=== PATIENT | female | born 1975 | race Caucasian/White ===

== ENCOUNTER 2019-07-01 12:47 | Emergency (ER) | payer OTHER ==
[2019-07-01] MEDS ORDERED: METHYLPREDNISOLONE PF 125MG/VIAL IVP ONE (12:55)
[2019-07-01] MEDS ORDERED: IPRATROPIUM/ALBUTEROL (0.5MG/3MG) NEB INH ONE ×2 (12:55→14:04)
[2019-07-01] MEDS ORDERED: ALBUTEROL (0.5% CONCENTRATED) 2.5 MG/0.5 ML VIAL.NEB INH ONE (12:56)
--- NOTE | 2019-07-01 12:56 | Emergency Department Record ---
History of Present Illness - General Stated Complaint: GALE/ASTHMA RELATED Time Seen by Provider: 07/01/19 12:51 Source: Patient Mode of Arrival: Ambulatory Limitations: No limitations - History of Present Illness Initial Comments: 43 yo female presents with shortness of breath. She has a life long history of asthma. On Wednesday she developed cough, clear runny nose and wheezing. No fevers or sputum. No chest pain. She used her inhaler twice today without relief. No history or ICU or intubation. No nausea, vomiting, diarrhea, swelling, rash or other current symptoms. She is a non smoker. She has had pneumonia in the past. Dr Jones is her PCP. MD Complaint: "Asthma attack", Shortness of breath -: Days(s) Asthma History: Childhood onset Severity: Moderate, Similar to prior Context: Recent URI Associated Symptoms: Dry cough Treatments Prior to Arrival: Inhaled bronchodilator - Related Data Current Asthma Therapy: Inhaled bronchodilator Home Medications Medication Instructions Recorded Confirmed Last Taken Albuterol Sulfate [Albuterol 1 puff IH ASDIR 07/01/19 07/01/19 Unknown Sulfate Hfa] Fluticasone Propion/Salmeterol 1 puff IH DAILY 07/01/19 07/01/19 Unknown [Advair Hfa 45-21 Mcg Inhaler] Omeprazole [Prilosec] 20 mg PO DAILY 07/01/19 07/01/19 Unknown Sertraline HCl [Zoloft] 100 mg PO DAILY 07/01/19 07/01/19 Unknown Previous Rx's Medication Instructions Recorded Albuterol Sulfate [Proventil Hfa] 1 - 2 puff INH .EVERY 4-6 HOURS 07/01/19 PRN #1 inhaler Azithromycin [Zithromax] 250 mg PO DAILY #4 tab 07/01/19 Prednisone [Prednisone 20Mg] 20 mg PO DAILY #10 tab 07/01/19 Allergies Allergy/AdvReac Type Severity Reaction Status Date / Time codeine Allergy BEHAVIORAL Verified 07/01/19 13:12 CHANGES Review of Systems Constitutional: Denies: Chills, Fever, Malaise, Weakness Eyes: Denies: Eye discharge, Eye pain, Photophobia, Vision change ENT: Reports: Congestion. Denies: Ear pain, Epistaxis, Throat pain Respiratory: Reports: Cough, Dyspnea, Wheezes. Denies: Hemoptysis, Stridor Cardiovascular: Reports: Dyspnea on exertion. Denies: Chest pain, Edema, Palpitations, Syncope Endocrine: Denies: Fatigue, Polydipsia, Polyuria Gastrointestinal: Denies: Abdominal pain, Diarrhea, Nausea, Vomiting Genitourinary: Denies: Dysuria, Urgency Musculoskeletal: Denies: Arthralgia, Back pain, Myalgia Skin: Denies: Bruising, Change in color, Rash Neurological: Denies: Headache Psychiatric: Denies: Anxiety Hematological/Lymphatic: Denies: Easy bleeding, Easy bruising Physical Exam - General General Appearance: Alert, Oriented x3, Cooperative, No acute distress Limitations: No limitations - Head Head exam: Atraumatic - Eye Eye exam: Normal appearance, PERRL Pupils: Normal accommodation - ENT ENT exam: Normal exam, Mucous membranes moist Ear exam: Normal external inspection Nasal Exam: Normal inspection Mouth exam: Normal external inspection Teeth exam: Normal inspection Throat exam: Normal inspection. negative: Tonsillar erythema, Tonsillomegaly, Tonsillar exudate, R peritonsillar mass, L peritonsillar mass - Neck Neck exam: Normal inspection, Full ROM. negative: Lymphadenopathy, Meningismus, Tenderness, Thyromegaly - Respiratory Respiratory exam: Accessory muscle use, Decreased breath sounds, Prolonged exp iratory, Wheezes, Other (Mild conversational dyspnea). negative: Normal lung sounds bilaterally, Chest wall tenderness, Rales, Respiratory distress, Rhonchi, Stridor - Cardiovascular Cardiovascular Exam: Regular rate, Normal rhythm, Normal heart sounds Peripheral Pulses: 2+: Radial (R), Radial (L) - GI/Abdominal GI/Abdominal exam: Soft. negative: Tenderness - Rectal Rectal exam: Deferred - exam: Deferred - Extremities Extremities exam: Normal inspection, Full ROM. negative: Pedal edema, Tenderness - Back Back exam: Denies: CVA tenderness (R), CVA tenderness (L) - Neurological Neurological exam: Alert, Oriented X3 - Psychiatric Psychiatric exam: Normal affect, Normal mood - Skin Skin exam: Dry, Intact, Normal color, Warm Course - Reevaluation(s) Reevaluation #1: 07/01/19 13:21 Recheck after the initial treatments The patient subjectively still feels tight but her lungs sounds are significantly improved with good inspiratory air movement and no wheeze. She is relaxed now without any conversational dypnea 07/01/19 14:04 The patient feels better but states she still has a little tightness. Repeat Duonenb ordered and will monitor. 07/01/19 14:59 The labs were reviewed. No changes on the CBC The BMP demonstrated a K of 3.1. Oral replacement ordered. 07/01/19 15:10 The XR was read as small right lower lung infiltrate at the base. She will be given a dose of antibiotics in the ED 07/01/19 15:30 The patient is doing well and is comfortable with DC afer completion of the antibiotics We discussed at length reasons to immediately return to the ED as well as close follow up. The patient will call the PCP for close follow up of this ED visit to review this visit and the tests performed Medical Decision Making - Lab Data Result diagrams: 07/01/19 14:20 07/01/19 14:20 Disposition Disposition: Discharge Clinical Impression: Asthma exacerbation Qualifiers: Asthma severity: moderate Asthma persistence: unspecified Qualified Code(s): J45.901 - Unspecified asthma with (acute) exacerbation Pneumonia Qualifiers: Pneumonia type: due to unspecified organism Laterality: right Lung location: lower lobe of lung Qualified Code(s): J18.1 - Lobar pneumonia, unspecified organism Disposition: Home, Self-Care Condition: (1) Good Instructions: Asthma (ED), Pneumonia (ED) Additional Instructions: Call your doctor for the next available follow up appointment Review this ER visit and the tests performed with your family doctor Return to the ER for a recheck if worse, any new concerns or questions Take the prescriptions provided as directed Use your inhaler 2 puffs every 4 hours today Prescriptions: Prednisone [Prednisone 20Mg] 20 mg PO DAILY #10 tab Albuterol Sulfate [Proventil Hfa] 1 - 2 puff INH .EVERY 4-6 HOURS PRN #1 inhaler PRN Reason: Difficulty In Breathing Azithromycin [Zithromax] 250 mg PO DAILY #4 tab Forms: Patient Portal Access Time of Disposition: 15:31 Quality - Quality Measures Quality Measures: N/A - Blood Pressure Screening Does Patient Have Any of the Following: No Blood Pressure Classification: Normal BP Reading Systolic Measurement: 109 Diastolic Measurement: 72 Screening for High Blood Pressure: < Normal BP, F/U Not Required > [G8783]
[2019-07-01 14:31] LABS: ABSOLUTE NEUTROPHIL COUNT 9.07; HEMATOCRIT 44.2 % (35.0-47.0); HEMOGLOBIN 14.4 gm/dl (11.6-16.0); MEAN CORPUSCULAR HEMOGLOBIN 29.3 pg (27-33); MEAN CORPUSCULAR HGB CONC 32.6 g/dl (32-36); MEAN PLATELET VOLUME 9.3 fl (7.4-10.4); PLATELET COUNT 235 K/uL (130-400); RED BLOOD COUNT 4.91 M/uL (3.80-5.40)
[2019-07-01 14:40] LABS: PLATELET ESTIMATE NORMAL (NORMAL)
[2019-07-01 14:45] LABS: BLOOD UREA NITROGEN 6 mg/dL (6-20); CREATININE 0.6 mg/dL (0.5-0.9); EST GLOMERULAR FILTRATION RATE > 60 mL/min
[2019-07-01 14:48] LABS: GLUCOSE,RANDOM 89 mg/dL (74-109)
[2019-07-01] MEDS ORDERED: POTASSIUM CHLORIDE 20 MEQ TABLET PO ONE (14:56)
[2019-07-01] MEDS ORDERED: CEFTRIAXONE 1GM/50ML BAG 1 GM/50 ML BAG IVPB ONE (15:09)
[2019-07-01] MEDS ORDERED: AZITHROMYCIN 500 MG TABLET PO ONE (15:09)
--- NOTE | 2019-07-03 08:56 | RADIOLOGY REPORT ---
EXAM: CHEST HISTORY: DIFFICULTY BREATHING. TECHNIQUE: Two views of the chest were obtained. Comparison: 08/19/13. FINDINGS: Small patchy infiltrate at the right lung base. The lungs otherwise appear clear. The heart is not enlarged. No mediastinal mass. IMPRESSION: SMALL PATCHY INFILTRATE AT THE RIGHT LUNG BASE, OTHERWISE UNREMARKABLE. JOB NUMBER: [id number] [facility]
== END 2019-07-01 15:56 | disposition home or self-care (01) ==
LOC: ER 12:47
DX: J45.901 Unspecified asthma with (acute) exacerbation (principal); J18.1 Lobar pneumonia, unspecified organism; R06.02 Shortness of breath; R07.89 Other chest pain
CPT/HCPCS: 99284 ×2; 96374; 96375; 80048; 85027; 71046; 94640 ×2; J0696; J2930

== ENCOUNTER 2019-09-07 07:59 | Emergency (ER) | payer OTHER ==
[2019-09-07] MEDS ORDERED: IBUPROFEN 600 MG TABLET PO ONE (08:28)
--- NOTE | 2019-09-07 08:29 | RADIOLOGY REPORT ---
EXAMINATION: Right Ankle, Complete Minimum Three Views EXAM DATE: 09/07/2019 8:23 AM TECHNIQUE: AP, lateral, and oblique images of the right ankle obtained. INDICATION: injury pain COMPARISON: None ENCOUNTER: Initial FINDINGS: The alignment is normal and no acute fracture is seen. The ankle mortise appears intact. There is sli ght soft tissue swelling and there may be underlying small ankle joint effusion. There is a small jagruti ntar calcaneal spur. IMPRESSION: Slight soft tissue swelling and perhaps underlying small ankle joint effusion. No acute fracture is seen. Dictated by: Nolberto Covarrubias MD on 09/07/2019 8:26 AM. .
--- NOTE | 2019-09-07 08:31 | Emergency Department Record ---
History of Present Illness - General Chief Complaint: Ankle/Foot Injury Stated Complaint: ANKLE INJURY Time Seen by Provider: 09/07/19 08:06 Source: Patient Mode of Arrival: Wheelchair Limitations: No limitations - History of Present Illness Initial Comments: Pt to ED from home with for injury to right ankle. Rolled walking twice yesterday. Was able to bear weight and walk last PM but this AM swollen and tender lateral ankle. No foot or knee pains. No hx similar. No fall or other injury. Onset/Timin -: Days(s) Place: Home Severity: Moderate Severity scale (1-10): 9 Improves With: Nothing Worsens With: Movement, Palpation, Weight bearing Context: Walking Associated Symptoms: Numbness, Snap/pop sensation, Swelling, Unable to bear weight - Related Data Previous Rx's Medication Instructions Recorded Ibuprofen [Motrin 600Mg] 600 mg PO Q6H 5 Days #40 tablet 09/07/19 Allergies Allergy/AdvReac Type Severity Reaction Status Date / Time codeine Allergy Unknown BEHAVIORAL Verified 09/07/19 08:24 CHANGES Travel Screening - Travel/Exposure Within Last 30 Days Have you traveled within the last 30 days?: No Review of Systems Constitutional: Denies: Chills, Fever Eyes: Denies: Eye discharge ENT: Denies: Congestion Respiratory: Denies: Cough Cardiovascular: Denies: Chest pain Endocrine: Denies: Fatigue Gastrointestinal: Denies: Abdominal pain Musculoskeletal: Reports: As per HPI Skin: Denies: Bruising Neurological: Denies: Headache, Tingling, Weakness Psychiatric: Denies: Anxiety Hematological/Lymphatic: Denies: Anemia Past Medical History - SOCIAL HISTORY Smoking Status: Former smoker - RESPIRATORY Hx Respiratory Disorders: Yes Hx Asthma: Yes - CARDIOVASCULAR Hx Cardio Disorders: No - NEURO Hx Neuro Disorders: No - GI Hx GI Disorders: No - Hx Genitourinary Disorders: No - ENDOCRINE Hx Endocrine Disorders: No - MUSCULOSKELETAL Hx Musculoskeletal Disorders: No - PSYCH Hx Psych Problems: Yes Hx Anxiety: Yes Hx Depression: Yes - HEMATOLOGY/ONCOLOGY Hx Hematology/Oncology Disorders: No Family Medical History Any Significant Family History?: No Physical Exam - General General Appearance: Alert, Oriented x3, Cooperative, Mild distress - Head Head exam: Atraumatic, Normal inspection - Eye Eye exam: PERRL - ENT ENT exam: Mucous membranes moist Nasal Exam: Normal inspection - Neck Neck exam: Normal inspection - Respiratory Respiratory exam: negative: Respiratory distress - Cardiovascular Cardiovascular Exam: Regular rate. negative: Tachycardia - GI/Abdominal GI/Abdominal exam: Soft. negative: Tenderness - Extremities Extremities exam: Tenderness (Tender right lateral diatal fib with swelling anterior at talo fib lig. No pain posterior distal fib or prox fib. No 5th MT pain. ) - Neurological Neurological exam: Alert, Oriented X3. negative: Normal gait - Psychiatric Psychiatric exam: Normal affect, Normal mood - Skin Skin exam: Normal color. negative: Rash Course Vital Signs 09/07/19 08:04 Temperature 98.2 F Pulse Rate 95 H Respiratory 20 Rate Blood Pressure 115/81 Pulse Ox 99 - Reevaluation(s) Reevaluation #1: 09/07/19 08:34 Xray neg for fx. Placed in ankle air stirrup. Motin given for pain and swelling. Discussed plan with pat and . Agree. Medical Decision Making - Data Complexity MDM Data: X-Ray Ordered and/or Reviewed - Radiology Data Radiology results: Image reviewed -: Radiology Exam Interpreted by Myself no fx Disposition Disposition: Discharge Clinical Impression: Moderate right ankle sprain Disposition: Home, Self-Care Condition: (1) Good Instructions: Ankle Sprain Exercises (GEN), Ankle Sprain (ED) Additional Instructions: Ice and rest, use air splint as needed. Family Doctor recheck in one week. Return to the ED as needed. Prescriptions: Ibuprofen [Motrin 600Mg] 600 mg PO Q6H 5 Days #40 tablet Forms: Patient Portal Access Time of Disposition: 08:31 Quality - Quality Measures Quality Measures: N/A - Blood Pressure Screening Does Patient Have Any of the Following: No Blood Pressure Classification: Pre-Hypertensive BP Reading Systolic Measurement: 115 Diastolic Measurement: 81 Screening for High Blood Pressure: < Pre-Hypertensive BP, F/U Documented > [G8950] Pre-Hypertensive Follow-up Interventions: Follow-up with rescreen every year.
== END 2019-09-07 08:35 | disposition home or self-care (01) ==
LOC: ER 07:59
DX: S93.401A Sprain of unspecified ligament of right ankle, initial encounter (principal); X50.0XXA Overexertion from strenuous movement or load, initial encounter; Y92.008 Other place in unspecified non-institutional (private) residence as the place of occurrence of the external cause; Z87.891 Personal history of nicotine dependence
CPT/HCPCS: 99283